=== PATIENT | female | born 1955 | race Caucasian/White ===

== ENCOUNTER 2018-10-30 12:08 | Emergency (ER) | payer BC ==
[2018-10-30 12:42] VITALS: BP 141/84
--- NOTE | 2018-10-30 12:53 | UC ---
Complaint Female HPI - HPI Summary HPI Summary: 63-year-old female presents with onset of urinary frequency last night. States this morning she noticed that her urine was very cloudy. She does report some mild generalized abdominal discomfort that started after an upper GI series that was performed 4 days ago. She is also noted some mild low back pain. Denies fever, chills, nausea, vomiting, diarrhea, blood in stool, melena, dysuria, urgency, hematuria, vaginal discharge, or abnormal bleeding. - History Of Current Complaint Chief Complaint: UCGU Stated Complaint: URINARY Time Seen by Provider: 10/30/18 12:39 Hx Obtained From: Patient Pain Intensity: 2 - Allergies/Home Medications Allergies/Adverse Reactions: Allergies Allergy/AdvReac Type Severity Reaction Status Date / Time Sulfa (Sulfonamide Allergy "My blood Verified 10/30/18 12:35 Antibiotics) counts dropped drastically." Home Medications: Home Medications Calcium Carbonate/Vitamin D3 [Caltrate 600+D] 2 chw PO DAILY 10/30/18 [History Confirmed 10/30/18] Cholecalciferol TAB* [Vitamin D TAB*] 2,000 units PO DAILY 10/30/18 [History Confirmed 10/30/18] L.acidoph,Paracasei, B.lactis [Probiotic] 1 each PO DAILY 10/30/18 [History Confirmed 10/30/18] Omeprazole CAP (NF) [Prilosec CAP* 20 MG] 40 mg PO QAM 10/30/18 [History Confirmed 10/30/18] Orphenadrine Citrate [Orphenadrine Citrate ER] 100 mg PO BEDTIME 10/30/18 [ History Confirmed 10/30/18] PMH/Surg Hx/FS Hx/Imm Hx Cardiovascular History: Hypertension GI/ History: Gastroesophageal Reflux, Kidney Stones, Other - Ulcerative colitits Neurological History: Other - MS Psychological History: Depression - Surgical History Surgical History: Yes Surgery Procedure, Year, and Place: HYSTERECTOMY,FOOT SURGERY, SINUS SURGERY X 2 - Family History Known Family History: Positive: Non-Contributory - Social History Occupation: Retired Lives: With Family Alcohol Use: Weekly Substance Use Type: None Smoking Status (MU): Never Smoked Tobacco Review of Systems All Other Systems Reviewed And Are Negative: Yes Constitutional: Negative: Fever, Chills Respiratory: Positive: Negative Cardiovascular: Positive: Negative Gastrointestinal: Positive: Abdominal Pain. Negative: Vomiting, Diarrhea, Nausea Genitourinary: Positive: Frequency. Negative: Dysuria, Hematuria, Urgency, Vaginal/Penile Itching, Vaginal/Penile Discharge, Ulceration/Lesion Musculoskeletal: Positive: Negative Neurological: Positive: Negative Is Patient Immunocompromised?: No Physical Exam - Summary Physical Exam Summary: GENERAL APPEARANCE: Well developed, well nourished, alert and cooperative, and appears to be in no acute distress. CARDIAC: Normal S1 and S2. No S3, S4 or murmurs. Rhythm is regular. There is no peripheral edema, cyanosis or pallor. Extremities are warm and well perfused. Capillary refill is less than 2 seconds. Peripheral pulses intact. LUNGS: Clear to auscultation without rales, rhonchi, wheezing or diminished breath sounds. ABDOMEN: Positive bowel sounds. Soft, nondistended. Mild generalized abdominal tenderness without guarding or rebound. No masses or hepatosplenomegally. Mild left CVA tenderness. MUSKULOSKELETAL: ROM intact to all extremities. No joint erythema or tenderness. Normal muscular development. Normal gait. BACK: Examination of the spine reveals normal gait and posture, no spinal deformity or tenderness, decreased range of motion or muscular spasm. SKIN: Skin normal color, texture and turgor with no lesions or eruptions. Triage Information Reviewed: Yes Vital Signs: Initial Vital Signs Temp 98.3 F 10/30/18 12:32 Pulse 70 10/30/18 12:32 Resp 16 10/30/18 12:32 BP 141/84 10/30/18 12:32 Pulse Ox 100 10/30/18 12:32 Vital Signs Reviewed: Yes Complaint Female Dx - Course Course Of Treatment: 63-year-old female presents with onset of urinary frequency last night. States this morning she noticed that her urine was very cloudy. She does report some mild generalized abdominal discomfort that started after an upper GI series that was performed 4 days ago. She is also noted some mild low back pain. Denies fever, chills, nausea, vomiting, diarrhea, blood in stool, melena, dysuria, urgency, hematuria, vaginal discharge, or abnormal bleeding. Afebrile. Vital signs stable. Exam reveals an older adult female in no acute distress with soft nondistended abdomen, mild generalized abdominal tenderness, mild left CVA tenderness, and otherwise unremarkable exam. [id number] urinalysis showed 1+ protein, trace ketones, otherwise normal. Urine culture is pending. Based on her exam and UA results I am recommending watchful waiting at this time pending the culture results. Anticipatory guidance and warning symptoms were reviewed with the patient. Verbalizes understanding and agrees with POC. - Differential Dx/Diagnosis Differential Diagnosis/HQI/PQRI: Renal Colic, Urinary Tract Infection, Other - Low back pain Provider Diagnosis: Urinary frequency Discharge - Sign-Out/Discharge Documenting (check all that apply): Patient Departure All imaging exams completed and their final reports reviewed: No Studies - Discharge Plan Condition: Stable Disposition: HOME Patient Education Materials: Urinary Tract Infection in Women (ED) Referrals: No Primary Care Phys,NOPCP [Primary Care Provider] - Additional Instructions: The urine test performed in the clinic today showed no evidence of infection. We will send your urine to the lab for a culture to see if any bacteria grow out. If the culture shows evidence of an infection we will contact you and start you on an appropriate antibiotic. Be sure to drink plenty of fluids. Seek immediate medical attention if you develop fever greater than 100.5 F, have severe abdominal pain, persistent vomiting, blood in your stool, or any any worsening of symptoms. - Billing Disposition and Condition Condition: STABLE Disposition: Home - Attestation Statements Provider Attestation: Per institutional requirements, I have reviewed the chart, however, I was not consulted specifically or made aware of this patient by the midlevel provider. I did not personally evaluate, interact with , or disposition this patient.
== END 2018-10-30 13:10 | disposition home or self-care (01) ==
LOC: UCCORT 12:08
DX: R35.0 Frequency of micturition (principal); M54.5 Low back pain; I10 Essential (primary) hypertension; K21.9 Gastro-esophageal reflux disease without esophagitis; R10.84 Generalized abdominal pain; Z87.442 Personal history of urinary calculi; Z87.19 Personal history of other diseases of the digestive system; Z88.2 Allergy status to sulfonamides; Z79.899 Other long term (current) drug therapy
CPT/HCPCS: 81003; 87086; 99202; G0463